=== PATIENT | male | born 1995 | race Caucasian/White ===

== ENCOUNTER 2016-03-11 14:19 | Emergency (ER) | payer BC ==
[2016-03-11 14:35] VITALS: RESP 16
--- NOTE | 2016-03-11 15:36 | DX ---
3 Views Left Shoulder and 2 Views of the Left Clavicle. Clinical Indications: Pain following trauma. Findings: The humeral head is normally located in the glenoid fossa. There is a minimally displaced and mildly angulated mid shaft left clavicular fracture. No other fracture is identified. The left a cromioclavicular joint is not widened. The bone alignment is normal. Impression: 1. Mid shaft left clavicular fracture. 2. Left shoulder negative for fracture.
--- NOTE | 2016-03-11 15:41 | EDPHY ---
[id number] limitations - Personal History Current Tetanus/Diphtheria Vaccine: Yes - Medical/Surgical History Hx Asthma: No Hx Chronic Respiratory Disease: No Hx Diabetes: No Hx Cardiac Disease: No Hx Renal Disease: No Hx Cirrhosis: No Hx Alcoholism: No Hx HIV/AIDS: No Hx Splenectomy or Spleen Trauma: No - Social History Smoking Status: Never smoked Time Seen by Provider: 03/11/16 14:37 HPI/ROS: CHIEF COMPLAINT: left shoulder pain HISTORY OF PRESENT ILLNESS: 20-year-old male presents emergency department by ambulance after a fall while snowboarding today. Patient was snowboarding, and fell directly onto left shoulder. Patient is [id number], he denies previous injury to this arm, he denies head strike, no chest pain or shortness of breath, no neck pain. No numbness or tingling to this arm, no other complaints. REVIEW OF SYSTEMS: A comprehensive 10 point review of systems is otherwise negative aside from elements mentioned in the history of present illness. (Winsome Estraad) - Physical Exam Exam: Physical Exam Gen: Alert and Oriented, NAD HEENT: PERRL, moist mucous membranes NECK: no C-spine tenderness to palpation CV: regular rate and regular rhythm PULM: CTAB, no wheezes ABDOMEN: soft, non tender to palpation, BS present NEURO: Neurologically grossly intact EXTREMITIES: Left clavicle with tenderness to palpation, mild swelling, no ecchymosis, no skin tenting, decreased range of motion of left shoulder due to pain, no left elbow pain, no left wrist pain, normal deltoid sensation, normal radial motor and sensation, 2+ radial pulses, sensation intact to light touch SKIN: no rash or break in skin on exposed skin PSYCH: answers questions appropriately. (Winsome Estrada) Constitutional: Initial Vital Signs Temperature (C) 36.8 C 03/11/16 14:19 Heart Rate 91 03/11/16 14:19 Respiratory Rate 16 03/11/16 14:19 Blood Pressure 111/70 03/11/16 14:19 O2 Sat (%) 94 03/11/16 14:19 O2 Delivery Mode Room Air Allergies/Adverse Reactions: No Known Allergies Allergy (Unverified 03/11/16 14:35) Home Medications: Medication Instructions Recorded Hydrocodone/APAP 5/325 [[place] 1 tab PO Q4H PRN #14 tab 03/11/16 5/325] Medical Decision Making - Diagnostics Imaging: Left shoulder and clavicle x-ray independently reviewed by me- Impression: 1. Mid shaft left clavicular fracture. 2. Left shoulder negative for fracture. Dictated By: Jhonathan Weaver MD (Winsome Estrada) ED Course/Re-evaluation: I did not see this patient while he was in the emergency department. However his care was discussed with the nurse practitioner while the patient was in the department. I agree with treatment plan and management (Wiliam Bustillos) Departure - Departure Disposition: Home, Routine, Self-Care Clinical Impression: Fracture of left clavicle Condition: Good Instructions: Clavicle Fracture (ED) Additional Instructions: Rest, ice, take 600 mg of ibuprofen every 8 hours with food for 3-5 days, take [place] for severe pain. Follow up with the orthopedist at 1st available appointment, call Sunday to schedule this appointment. Return to the emergency department for any new symptoms or concerns, numbness or tingling in this arm, pain that is not controlled. Referrals: Rashid Salvador MD [Medical Doctor] - As per Instructions (Orthopedist production line technician) Prescriptions: Hydrocodone/APAP 5/325 [[place] 5/325] 1 tab PO Q4H PRN #14 tab PRN Reason: Pain, Moderate
[2016-03-11 15:47] VITALS: TEMP 98.2
[2016-03-11 16:03] VITALS: BP 132/80; PULSE 87; O2SAT 98
== END 2016-03-11 16:03 | disposition home or self-care (01) ==
DX: S42.022A Displaced fracture of shaft of left clavicle, initial encounter for closed fracture (principal); V00.311A Fall from snowboard, initial encounter; Y93.23 Activity, snow (alpine) (downhill) skiing, snowboarding, sledding, tobogganing and snow tubing
CPT/HCPCS: A4565